=== PATIENT | male | born 1970 | race Hispanic/Latino ===

== ENCOUNTER → 2022-09-08 | Day surgery (SDC) | payer BC ==
[~2022-09-08] MED LIST: AMLODIPINE BESY10 MG PO; ATORVASTATIN CA20 MG PO; GLUCAGON FOR INJ 1 MG VIAL ONE; HYOSCYAMINE SULFATE 0.5 MG/ML INJ ONE; LEVOTHYROXINE100 MC1 PO; LIDOCAINE HCL 2% LOCAL INJ 5 ML SDV VIAL INJ ONE; MIDAZOLAM HCL 2 MG/2 ML VIAL ONE; PROPOFOL IV EMULSION 10 MG/ML 20 ML VIAL ONE
[2022-09-08 10:40] VITALS: BP 136/99
== END | disposition home or self-care (01) ==
LOC: OR 09:57
PROVIDERS: ATTEND Internal Medicine Gastroenterology
DX: Z12.11 Encounter for screening for malignant neoplasm of colon (principal); D12.2 Benign neoplasm of ascending colon; D12.3 Benign neoplasm of transverse colon; D12.5 Benign neoplasm of sigmoid colon; K62.1 Rectal polyp; K64.8 Other hemorrhoids; Z71.3 Dietary counseling and surveillance; E03.9 Hypothyroidism, unspecified; I10 Essential (primary) hypertension; I49.8 Other specified cardiac arrhythmias; E78.00 Pure hypercholesterolemia, unspecified; M54.30 Sciatica, unspecified side; Z01.810 Encounter for preprocedural cardiovascular examination; Z79.899 Other long term (current) drug therapy; Z68.34 Body mass index [BMI] 34.0-34.9, adult
CPT/HCPCS: 45385; 93005; J1610; J1980; J2001; J2250; J2704; 45378; 45380